=== PATIENT | female | born 1935 | race Caucasian/White ===

== ENCOUNTER 2019-05-24 13:00 | Emergency (ER) | payer OTHER ==
[2019-05-24 13:17] VITALS: BP 143/65; PULSE 98; TEMP 97.7; BMI 24.0
--- NOTE | 2019-05-24 13:36 | PDOC ---
Attending Attestation - Resident Resident Name: Rolf Zamora - ED Attending Attestation I have performed the following: I have examined & evaluated the patient, The case was reviewed & discussed with the resident, I agree w/resident's findings & plan - HPI HPI: 05/24/19 13:33 83 y/o female with SOB since last night with wheezing. Took 2 puffs of daughter' s inhaler. Better now. No fever, chill, chest pain or traveling. No leg swelling , back pain N/V/d/C. - Physicial Exam PE: 05/24/19 13:34 VS stable HEENT: unremarkable, no JVD Heart: RRR w/o murmur Lungs: CTA b/l, no wheezing b/l Abdomen: soft nontender +BS no pulsatile mass Ext: mild edema b/l, no C/C Neuro: grossly intact no focal deficits noted - Medical Decision Making 05/24/19 13:36 83 y/o f/o with SOB now resolved Will obtain cardiac work up 05/24/19 14:45 Work up negative, CXR normal Labs WNL EKG NSR at 88 1st degree AV block, no STEMI Final Dx: dyspnea resolved, bronchospasm Will send home, pt in agreement with plan If worsen return to ER Agree with plan and assessment of Dr. Rolf Zamora 05/24/19 14:54
--- NOTE | 2019-05-24 13:56 | PDOC ---
History of Present Illness - General Chief Complaint: Respiratory Stated Complaint: COUGH, "WHEEZING" Time Seen by Provider: 05/24/19 13:12 History Source: Patient, Family (Daughter at bedside.) Exam Limitations: No Limitations - History of Present Illness Initial Comments: HPI: 83 y/o female presenting to [facility] complaining of multiple episodes of wheezing and shortness of breath. Mild episode last evening that resolved with application of Vicks Vapor Rub. Episode this morning was more intense. Started when she was lying flat after breakfast. Achieved some transient relief with prescribed albuterol nebulizer. Daughter became concerned when the wheezing became more intense. Gave the pt x2 puffs of the daughter's ProAir inhaler. Daughter noted the pt was wheezing and SOB while walking from the parking lot to the ED. Pt denies significant lower extremity swelling (chronic mild dependent edema), persistent orthopnea, or paroxysmal nocturnal dyspnea. Denies recent travel or long periods of immobilization. Denies associated chest, neck, arms, or abdominal pain. Denies productive cough. Social: - Former packager machine - Nonsmoker Medical Hx: - Depression - HTN - GERD - Hep C Pt and daughter state possible COPD diagnosis, but different physicians have disagreed. Reviewed [facility]. Noted diagnosis of diastolic CHF and EtOH dependence. Review of Systems: 10 point review of systems completed. All systems negative except as noted above. Physical Examination: Vital signs and nursing notes reviewed. Constitutional- Well-developed, well-nourished elderly adult female in no acute distress or obvious discomfort. Found semi-fowlers on hospital bed. Answered all questions appropriately and completely. Head- Normocephalic. No obvious external signs of trauma. Throat- Oral cavity and pharynx normal. No inflammation, swelling, exudate, or lesions. Neck- Supple, trachea is midline. No JVD. Cardiovascular / Chest- Regular rate and regular rhythm. Systolic murmur loudest at right sternal border. No rubs, clicks, or gallops. Peripheral pulses - radial pulses full. Trace bilateral pretibial edema. Respiratory- Breathing unlabored. Speaking in complete sentences without pausing. Equal chest rise and fall. Clear to auscultation bilaterally. No stridor, no wheezing, no rhonchi. Gastrointestinal- abdomen is soft, non-tender, non-distended. Neuro- Alert and oriented x4. Moving all four extremities spontaneously. No facial asymmetry. No slurred speech. Skin- Warm, dry, and intact. Psych- Affect- appropriate. Mood- normal. Speech was non-labored, non- pressured. MDM: 83 y/o female presenting with resolved episode of wheezing, cough, and SOB that started after eating then lying flat. Afebrile. Vitals unremarkable for hypotension or tachycardia. Normoxic on room air. Physical exam as described above. CXR unremarkable for acute cardiopulmonary pathology. EKG unremarkable for ischemic findings. Laboratory data reviewed and unremarkable for derangement - no anemia, leukocytosis, or elevated troponin. Symptoms started > 3 hr, so no delta troponin indicated. Suspect possible acute laryngeal spasm secondary to reflux given pts GERD history and postprandial positioning just prior to start of symptoms. Low suspicion for COPD exacerbation, acute bronchitis, acute CHF, or ACS. 24 May 2019 14:55 PM Pt reassessed. Reports no further wheezing, coughing, or SOB. Daughter agrees that she has not observed any further symptoms. Discussed physical exam findings, laboratory results, and xrays findings with pt and daughter. Answered all questions. Provided return precautions. pt and daughter expressed verbal understanding and agreement with plan to discharge home with close outpatient follow up, or will return to the ED for worsening symptoms. Provided copies of todays results. Rolf Zamora M.D., PGY2 Emergency Medicine Resident Past History - Past Medical History Allergies/Adverse Reactions: Allergies Allergy/AdvReac Type Severity Reaction Status Date / Time No Known Drug Allergies Allergy Verified 05/24/19 13:03 Home Medications: Ambulatory Orders Losartan Potassium 50 mg PO DAILY 07/12/14 Pantoprazole Sodium [Protonix] 40 mg PO DAILY 07/12/14 Amlodipine Besylate 5 mg PO DAILY 11/22/14 Ascorbic Acid [Vitamin C] 500 mg PO DAILY 11/22/14 Aspirin [Aspirin EC] 81 mg PO DAILY 11/22/14 Folic Acid - 1 mg PO DAILY 11/22/14 Furosemide [Lasix -] 20 mg PO DAILY 11/22/14 Calcium Carbonate/Vitamin D3 [Calcium 600 + Vit D 400 Softgl] 1 cap PO DAILY 04/13 Cetirizine HCl 10 mg PO DAILY 05/24/19 Mirabegron [Myrbetriq] 50 mg PO DAILY 05/24/19 Quetiapine Fumarate [Seroquel -] 25 mg PO HS 05/24/19 Venlafaxine HCl ER [Effexor Xr -] 75 mg PO DAILY 05/24/19 COPD: No HTN: Yes Psychiatric Problems: Yes (ANXIETY) - Surgical History Cholecystectomy: Yes Orthopedic Surgery: Yes (ARTHROSCOPY L KNEE) - Psycho Social/Smoking Cessation Hx Smoking History: Never smoked Have you smoked in the past 12 months: No Information on smoking cessation initiated: No Hx Alcohol Use: No Drug/Substance Use Hx: No Substance Use Type: None, Alcohol Hx Substance Use Treatment: No *Physical Exam - Vital Signs Last Vital Signs Temp Pulse Resp BP Pulse Ox 97.7 F 98 H 20 143/65 97 05/24/19 13:00 05/24/19 13:00 05/24/19 13:00 05/24/19 13:00 05/24/19 13:00 ED Treatment Course - LABORATORY CBC & Chemistry Diagram: 05/24/19 13:52 05/24/19 13:34 - RADIOLOGY Radiology Studies Ordered: Category Date Time Status CHEST PA & LAT [RAD] Stat Radiology 05/24/19 13:32 Ordered Discharge - Discharge Information Problems reviewed: Yes Clinical Impression/Diagnosis: Wheezing, SOB (shortness of breath) Condition: Improved Disposition: HOME - Admission No - Follow up/Referral Referrals: Nhan Wintres MD [Staff Physician] - 2 Days - Patient Discharge Instructions Patient Printed Discharge Instructions: DI for Gastroesophageal Reflux Disease (GERD), DI for Cough -- Adult, GERD Diet Additional Instructions: You were seen today for wheezing and shortness of breath. Your symptoms had completely resolved by the time you were seen in the ED. Your chest xray, EKG, and blood work were all normal. The cause of your symptoms is unclear, but it is unlikely to be a life threatening emergency. It may have been caused by reflux symptoms irritating your airway. I have attached instructions on managing heartburn and a suggested bland diet. Try following the recommendations for the next few days. Follow up with your primary care doctor in the next 1-2 days. You will need to call to make an appointment. The number is included in this packet. A copy of todays results are attached to this packet. Take it to the appointment so your doctor can review them. Go to the nearest emergency department if your condition worsens or you feel like you need additional emergency evaluation. Print Language: BELARUSIAN - Post Discharge Activity
[2019-05-24 14:21] LABS: ALBUMIN 3.1 g/dl (3.4-5.0); BILIRUBIN,TOTAL 0.4 mg/dl (0.2-1); CALCIUM 8.7 mg/dl (8.5-10); POTASSIUM 3.4 mmol/L (3.5-5.1); TOT PROT 6.3 g/dl (6.4-8.2)
[2019-05-24 14:32] LABS: BASO % 1.1 % (0-2.0); HEMATOCRIT 28.6 % (32.4-45.2); HEMOGLOBIN 9.3 GM/dL (10.7-15.3); MCH 28.5 pg (25.7-33.7); MCHC 32.6 g/dl (32.0-36.0); MEAN CELL VOLUME 87.6 fl (80-96); MEAN PLT VOLUME 8.7 fl (7.5-11.1); MONO % 9.1 % (3.8-10.2); NEUT % 67.8 % (42.8-82.8); PLATELET COUNT 199 K/MM3 (134-434); RBC 3.27 M/mm3 (3.60-5.2); RDW 13.5 % (11.6-15.6); WHITE BLOOD COUNT 6.2 K/mm3 (4.0-10.0)
--- NOTE | 2019-05-25 09:30 | EKG ---
Test Reason : Blood Pressure : / mmHG Vent. Rate : 088 BPM Atrial Rate : 088 BPM P-R Int : 220 ms QRS Dur : 068 ms QT Int : 396 ms P-R-T Axes : 036 -02 064 degrees QTc Int : 479 ms SINUS RHYTHM WITH 1ST DEGREE A-V BLOCK SEPTAL INFARCT , AGE UNDETERMINED ABNORMAL ECG WHEN COMPARED WITH ECG OF 30-JAN-2004 21:23, SEPTAL INFARCT IS NOW PRESENT Confirmed by Mei Bauer ([id number]) on 05/25/2019 9:29:53 AM Referred By: MICHEAL SO Confirmed By:Mei Bauer
== END 2019-05-24 15:10 | disposition home or self-care (01) ==
LOC: FER 13:00 → SUPCPDRO 13:00 → FER 15:10
DX: R06.02 Shortness of breath (principal); R06.2 Wheezing; I10 Essential (primary) hypertension; K21.9 Gastro-esophageal reflux disease without esophagitis; B19.20 Unspecified viral hepatitis C without hepatic coma; F41.8 Other specified anxiety disorders
CPT/HCPCS: 36415; 71046-TC-FY; 80053; 82550; 84484; 85025; 93005; 99285-25